=== PATIENT | female | born 1950 | race Caucasian/White ===

== ENCOUNTER → 2018-04-14 | Outpatient (CLI) | payer OTHER | END | disposition home or self-care (01) | LOC: LAB SHORT 16:32 → LAB 16:32 | PROVIDERS: Advanced Practice Midwife | DX: Z01.419 Encounter for gynecological examination (general) (routine) without abnormal findings (principal) | CPT/HCPCS: 87624; G0123 ==

== ENCOUNTER 2023-04-17 08:15 | Day surgery (SDC) | payer OTHER ==
[~2023-04-17] VITALS: Ht 149.9 cm; Wt 78.7 kg
[2023-04-17] MEDS ORDERED: EUTHYROX125 MCG PO (08:53)
[2023-04-17] MEDS ORDERED: TRULICITY1.5 MG/0.1 SQ (08:54)
[2023-04-17] MEDS ORDERED: JARDIANCE25 MG PO (08:55)
[2023-04-17] MEDS ORDERED: BASAGLAR K100 UNIT/1 SC (08:56)
[2023-04-17] MEDS ORDERED: HYDPAM50 PO (08:56)
[2023-04-17] MEDS ORDERED: INSULIN AS100 UNIT/6 SQ (08:56)
[2023-04-17] MEDS ORDERED: KETO.5OPSO RIGHTEYE (08:57)
[2023-04-17] MEDS ORDERED: LIDO700A20 TOP (08:58)
[2023-04-17] MEDS ORDERED: MELA3 PO (08:59)
[2023-04-17] MEDS ORDERED: METF500 PO (08:59)
[2023-04-17] MEDS ORDERED: MONT10T (09:00)
[2023-04-17] MEDS ORDERED: NYSTATIN15 GM TOP (09:01)
[2023-04-17] MEDS ORDERED: PIOG30 PO (09:01)
[2023-04-17] MEDS ORDERED: PRAM.5 PO (09:02)
[2023-04-17] MEDS ORDERED: Crestor20 MG (09:03)
[2023-04-17] MEDS ORDERED: WEGOVY1 MG/0.5 M (09:06)
[2023-04-17] MEDS ORDERED: TRAM50 PO (09:07)
[2023-04-17] MEDS ORDERED: Triamcinolone A15 G3 TOP (09:07)
[2023-04-17] MEDS ORDERED: UBID10 PO (09:08)
[2023-04-17] MEDS ORDERED: TURMERIC500 M2 PO (09:08)
[2023-04-17] MEDS ORDERED: GORMEL TEN228 G1 TOP (09:08)
[2023-04-17] MEDS ORDERED: VENL37.5 PO (09:09)
--- NOTE | 2023-04-17 09:20 | NUR ---
04/17/23 0920 Maylin Moore TETRICAIN GIVEN IN RIGHT EYE AT 0848. PLEGET FOAM PLACED IN RIGHT EYE AT 0850. PT TOLERATED WELL.
--- NOTE | 2023-04-17 09:42 | NUR ---
04/17/23 0942 Willow Ruiz TEST DOSE OF IODINE ON LEFT FOREARM IN PRE OP WITH NO REACTION. SURGEON OKAY TO USE IODINE PREP. SKIN CLEANED OFF WELL AFTER USE
[2023-04-17 10:00] VITALS: BP 131/82
--- NOTE | 2023-04-17 10:10 | NUR ---
04/17/23 1010 Wendy Macedo IV REMOVED, SITE WNL
== END 2023-04-17 10:15 | disposition home or self-care (01) ==
LOC: ORSCSDS 08:15
PROVIDERS: Ophthalmology
PROC: 08RJ3JZ Replacement of Right Lens with Synthetic Substitute, Percutaneous Approach (ICD-10-PCS; principal; 2023-04-17 09:30)
DX: E11.36 Type 2 diabetes mellitus with diabetic cataract (principal); H25.13 Age-related nuclear cataract, bilateral; H52.201 Unspecified astigmatism, right eye; G47.33 Obstructive sleep apnea (adult) (pediatric); J45.909 Unspecified asthma, uncomplicated; E03.9 Hypothyroidism, unspecified; E66.9 Obesity, unspecified; Z68.35 Body mass index [BMI] 35.0-35.9, adult; Z79.899 Other long term (current) drug therapy
CPT/HCPCS: 82947; J1100; J2250; J2405; J3010; J3301; J7040; V2632